=== PATIENT | female | born 1960 | race African-American/Black ===

== ENCOUNTER 2016-08-31 19:57 | Emergency (ER) | payer BC ==
[~2016-08-31] VITALS: Ht 165.1 cm; Wt 86.2 kg
[~2016-08-31 19:57] MED LIST: BACTRIM DS TAB1 EAC1 ORAL; CEPHALEXIN500 MG ORAL; IBUPROFEN800 MG ORAL; NORCO 5-325 TA1 EACH ORAL; RANITIDINE HCL150 MG ORAL; ZOFRAN4 MG ORAL
[2016-08-31] MEDS ORDERED: IBUPROFEN600 MG ORAL (20:37)
[2016-08-31] MEDS ORDERED: ROBAXIN-750750 MG PO (20:37)
[2016-08-31] MEDS ORDERED: ACETAMINOPHEN-1 EAC1 ORAL (20:37)
[2016-08-31 20:42] VITALS: BP 166/88
[2016-08-31 20:56] VITALS: BP 166/88
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
== END 2016-08-31 21:01 | disposition home or self-care (01) ==
LOC: EMR 20:36
DX: S13.9XXA Sprain of joints and ligaments of unspecified parts of neck, initial encounter (principal); S13.4XXA Sprain of ligaments of cervical spine, initial encounter; V43.52XA Car driver injured in collision with other type car in traffic accident, initial encounter; Y93.9 Activity, unspecified; Y92.410 Unspecified street and highway as the place of occurrence of the external cause; M25.519 Pain in unspecified shoulder; Z91.048 Other nonmedicinal substance allergy status; M54.9 Dorsalgia, unspecified
CPT/HCPCS: 99284

== ENCOUNTER 2017-04-19 00:35 | Emergency (ER) | payer BC ==
[~2017-04-19] VITALS: Ht 165.1 cm; Wt 86.2 kg
[~2017-04-19 00:35] MED LIST changes: +ACETAMINOPHEN-1 EAC1 ORAL; +IBUPROFEN600 MG ORAL; +ROBAXIN-750750 MG PO
[2017-04-19] MEDS ORDERED: NKM (00:47)
[2017-04-19 00:50] VITALS: BP 115/82
--- NOTE | 2017-04-19 00:53 | Emergency Room Report ---
History of Present Illness General Chief Complaint: Skin Rash/Abscess Source: Patient Present Illness HPI 56-year-old female p/w redness/swelling/bump to right upper leg for 7 days. pain to the area, denies purulent drainage. Reports subjective fevers. Reports hx of abscesses in the past. Allergies: Coded Allergies: No Known Allergies (Verified Allergy, Unknown, NKDA, 09/22/07) Uncoded Allergies: CLIP/MONIKA. (Adverse Reaction, Severe, INFECTION., 09/22/07) Patient History Past Medical History: see triage record Past Surgical History: none Pertinent Family History: none Last Menstrual Period: n/a Reviewed Nursing Documentation: PMH: Agreed, PSxH: Agreed Nursing Documentation-PMH Past Medical History: No History, Except For Review of Systems All Other Systems: negative except mentioned in HPI Physical Exam Vital Signs Date Time Temp Pulse Resp B/P (MAP) Pulse Ox O2 Delivery O2 Flow Rate FiO2 04/19/17 00:42 98.2 73 16 115/82 99 Room Air Sp02 EP Interpretation: reviewed, normal General Appearance: normal inspection, well appearing, no apparent distress, alert, GCS 15, non-toxic Head: normocephalic, atraumatic Eyes: bilateral eye normal inspection, bilateral eye PERRL, bilateral eye EOMI ENT: normal ENT inspection, normal pharynx, normal voice, moist mucus membranes Neck: normal inspection, full range of motion, supple Respiratory: normal inspection, lungs clear, normal breath sounds, no respiratory distress, no retraction, no wheezing, speaking full sentences, chest symmetrical Cardiovascular #1: normal inspection, regular rate, rhythm, no edema, normal capillary refill Cardiovascular #2: 2+ radial (R), 2+ radial (L) Gastrointestinal: normal inspection, non tender, soft, non-distended, no guarding Musculoskeletal: back normal, normal range of motion, other - Fluctuant abscess noted in right upper anterior thigh, surrounding erythema about 5 cm, abscess is about 2 x 2 centimeters Neurologic: normal inspection, alert, oriented x3, responsive, motor strength/ tone normal, sensory intact, normal gait, speech normal Psychiatric: normal inspection, judgement/insight normal, memory normal Skin: normal inspection, normal color, no rash, warm/dry, well hydrated, normal turgor Procedures Incision and Drainage Incision and Drainage : Consent: Verbal Site: R thigh Blade Size: 11 I & D Procedure: betadine prep, sterile drapes applied, sterile dressing applied, gauze wick placed Wound's Depth, Shape: superficial Wound Length (cm): 3 Wound Explored: +purulent drainage Anesthesia: 1% Lidocaine Volume Anesthetic (ccs): 3 Splint Applied?: No Patient Tolerated: Well Complications: None Medical Decision Making Diagnostic Impression: Primary Impression: Abscess Additional Impression: Cellulitis ER Course 56-year-old female p/w bump/swelling to upper thigh for 7 days DDX: abscess Plan: Incision and drainage, DC home with ABX ER course: Incision and drainage performed. Packing placed. No complications Disposition: Patient discharged to home with keflex and doxycycline. Patient instructed to follow up in ED or primary care doctor's office to wound recheck in 48 hours without fail. Patient cautioned to return to ED immediately if there is rapid spread of rash, high fever or chills. Patient verbalized understanding and agrees with plan. Please note that this Emergency Department Report was dictated using [email or web address] technology software, occasionally this can lead to erroneous entry secondary to interpretation by the dictation equipment. Last Vital Signs Date Time Temp Pulse Resp B/P (MAP) Pulse Ox O2 Delivery O2 Flow Rate FiO2 04/19/17 00:42 98.2 73 16 115/82 99 Room Air Disposition: HOME, SELF-CARE Condition: Improved Scripts Doxycycline Monohydrate* (DOXYCYCLINE MONOHYDRATE*) 100 Mg Capsule 100 MG ORAL Q12H, #14 CAP 0 Refills Prov: Maryann Wood M.D. 04/19/17 Cephalexin* (KEFLEX*) 500 Mg Capsule 500 MG ORAL Q6H, #28 CAP 0 Refills Prov: Maryann Wood M.D. 04/19/17 Patient Instructions: Abscess Maryann Wood M.D. Apr 19, 2017 00:53
[2017-04-19] MEDS ORDERED: KEFLEX500 MG ORAL (00:54)
[2017-04-19] MEDS ORDERED: DOXYCYCLINE MO100 MG ORAL (00:54)
== END 2017-04-19 01:45 | disposition home or self-care (01) ==
LOC: EMR 01:39
DX: L02.415 Cutaneous abscess of right lower limb (principal); L03.115 Cellulitis of right lower limb
CPT/HCPCS: 10060; 99283

== ENCOUNTER 2017-04-21 21:18 | Emergency (ER) | payer BC ==
[~2017-04-21] VITALS: Ht 165.1 cm; Wt 86.2 kg
[~2017-04-21 21:18] MED LIST changes: +DOXYCYCLINE MO100 MG ORAL; +KEFLEX500 MG ORAL; +NKM
[2017-04-21 21:40] VITALS: BP 130/84
[2017-04-21 21:55] VITALS: BP 130/84
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
== END 2017-04-21 21:55 | disposition home or self-care (01) ==
LOC: EMR 21:46
DX: L02.415 Cutaneous abscess of right lower limb (principal); L03.113 Cellulitis of right upper limb; Z48.01 Encounter for change or removal of surgical wound dressing
CPT/HCPCS: 99282